=== PATIENT | female | born 1965 | race Caucasian/White ===

== ENCOUNTER 2017-07-29 14:02 | Emergency (ER) | payer OTHER ==
[~2017-07-29] VITALS: Ht 165.1 cm; Wt 68.0 kg
--- NOTE | ~2017-07-29 | EKG ---
[address] [place] [address] [place] [address] ELECTROCARDIOGRAM REPORT Name: BYRON CHINO Room #: [facility]#: [id number] Admission: 07/29/17 Attend Phys: Discharge: 07/29/17 Date of : 69 Report #: [id number] THIS REPORT FOR: //name// [facility] ED Test Date: 2017-07-29 Test Time: 14:02:18 Pat Name: BYRON CHINO Department: Room: Gender: F Dock Manager: [facility] : 1965 Requested By: Makenzie Valencia Order Number: [id number] MD: Loki Matamoros Measurements Intervals [place] Rate: 92 P: 81 MA: 146 QRS: 64 QRSD: 157 T: 48 QT: 350 QTc: 433 Interpretive Statements Sinus rhythm Biatrial enlargement Right ventricular conduction delay No previous ECG available for comparison Electronically Signed On 07-30-2017 12:50:48 CDT by Loki Matamoros [email or web address] <ELECTRONICALLY SIGNED> By: Loki Matamoros MD, [facility] 07/30/17 1250 1402 1402 Loki Matamoros MD, FACC /EPI
[2017-07-29] MEDS ORDERED: ADDERALL 5 MG TA5 M1 PO (14:24)
[2017-07-29 14:48] LABS: ABSOLUTE NEUTROPHILS 8.7 thou/uL (1.4-8.2); BASOPHILS 0.6 % (0.0-2.0); EOSINOPHILS 0.2 % (0.0-3.0); HEMATOCRIT 38.4 % (37.0-47.0); HEMOGLOBIN 12.8 gm/dL (12.0-15.0); LYMPHOCYTES 15.8 % (24.0-44.0); MCH 30.2 pg (26.0-34.0); MCHC 33.4 g/dL (28.0-37.0); MCV 90.3 fL (80.0-100.0); MONOCYTES 6.4 % (1.0-8.0); PLATELET COUNT 270 thou/uL (150-400); RBC 4.25 mil/uL (4.20-5.00); RDW 12.2 % (10.5-14.5); WBC 11.3 thou/uL (4.0-11.0)
[2017-07-29 14:54] LABS: ANION GAP 6 mmol/L (7-16); BUN 10 mg/dL (7-18); CALCIUM 9.3 mg/dL (8.5-10.1); CHLORIDE 104 mmol/L (98-107); CO2 27 mmol/L (21-32); CREATININE 0.8 mg/dL (0.6-1.0); GLUCOSE 107 mg/dL (74-106); POTASSIUM 3.8 mmol/L (3.5-5.1); SODIUM 137 mmol/L (136-145)
[2017-07-29 15:03] LABS: TROPONIN-I < 0.04 ng/mL (<0.06)
[2017-07-29 17:25] VITALS: BP 114/65
== END 2017-07-29 17:26 | disposition home or self-care (01) ==
LOC: ER 14:02
PROVIDERS: Emergency Medicine
DX: R07.9 Chest pain, unspecified (principal)